=== PATIENT | male | born 1985 | race Asian ===

== ENCOUNTER 2019-06-25 10:01 | Emergency (ER) | payer OTHER ==
[~2019-06-25] VITALS: Ht 188 cm; Wt 98.9 kg
[2019-06-25 10:58] LABS: PLATELET COUNT 311 K/uL (142-355)
[2019-06-25 12:40] VITALS: BP 121/76; TEMP 97.8
== END 2019-06-25 12:40 | disposition home or self-care (01) ==
LOC: ED 10:01
PROVIDERS: Emergency Medicine Emergency Medical Services
DX: K57.32 Diverticulitis of large intestine without perforation or abscess without bleeding (principal); J20.9 Acute bronchitis, unspecified
CPT/HCPCS: 80053; 81000; 85027; 96372; 99283; J1885